=== PATIENT | female | born 1955 ===

== ENCOUNTER → 2025-03-17 | Outpatient (CLI) | payer OTHER, SELFPAY ==
--- NOTE | 2025-03-17 15:34 | XR_ITS ---
Examination: CT abdomen with intravenous contrast CT pelvis with intravenous contrast 2-D coronal reconstructions 2-D sagittal reconstructions Date and time of exam:March 17, 2025, 1727 hrs. Indications: Generalized abdominal pain 16 years. CTDI: vol (mGy) 7.95 DLP: (mGycm) 406 Technique: Multiple axial sections of the abdomen and pelvis have been obtained. 64 slice high-resolution scanner used. 3 mm axial sections have been obtained, post intravenous injection cc [id number] 2-D sagittal, coronal reconstructions obtained. Low dose protocols were performed. One or more of the following dose reduction techniques were used; automated exposure control, adjustment of the mA and/or KV according to patient size, use of iterative reconstruction technique. Findings: Atelectasis versus pneumonia left base No visualized liver or splenic lesion Gallbladder is visualized Common bile duct 5 mm No pancreatic mass Normal adrenal glands No hydronephrosis Aorta normal size Right anterior lateral wall hernia defect, axial image 118, measuring 26 mm, containing transverse colon although no incarcerated bowel 30 mm fat-containing umbilical hernia which also contains bowel, small bowel but again no incarcerated bowel Significantly distended rectosigmoid Rectal wall thickening axial image 181 measuring up to 10 mm Absent uterus No pelvic mass Bladder intact Moderate osteopenia Impression: Atelectasis versus pneumonia left base, clinical correlation advised No common bile duct stones. Right anterior lateral wall abdominal hernia defect, 26 mm, containing transverse colon although no incarcerated bowel 30 mm fat-containing umbilical hernia which contains small bowel but again no incarcerated bowel Significantly distended rectosigmoid, clinical correlation advised. Rectal wall thickening up to 10 mm, differential would include proctitis, clinical correlation advised
== END | disposition home or self-care (01) ==
PROVIDERS: Referring Provider Specialist; Visit Provider Specialist
DX: R91.8 Other nonspecific abnormal finding of lung field (principal); K46.9 Unspecified abdominal hernia without obstruction or gangrene; K63.89 Other specified diseases of intestine; K42.9 Umbilical hernia without obstruction or gangrene; K62.89 Other specified diseases of anus and rectum
CPT/HCPCS: 74177; A4649; Q9967